=== PATIENT | female | born 1990 | race Caucasian/White ===

== ENCOUNTER 2022-02-17 05:05 | Inpatient (IN) | payer OTHER, SELFPAY ==
[2022-02-17] VITALS (65 sets, daily range): BP systolic 99–204; BP diastolic 39–173; PULSE 55–197; RESP 16–18; TEMP 36.6–38; O2SAT 95–100; BMI 30.8
--- NOTE | 2022-02-17 05:05 | LDADM ---
This patient, Mihaela Rubalcava, was admitted to Labor/Delivery/Recovery 105 on 02/17/22 at 05:05. Plans for labor, pain management and were discussed with patient. Patient/family oriented to hospital policies and general routines including ID bracelet, bed and alarms, visiting hours, pain management, procedures, bathroom and other care routines, personal items, smoking policy, room service/diet and guest tray routines, infant security routines, and visiting hours. Patient/Family are encouraged to report perceived risks to care and to ask questions if they do not understand what they are told or what they should do. See OBIX for further documentation.
[2022-02-17] MEDS: OXYTOCIN 30 UNITS/NS 500 ML 30 UNITS/500 ML BAG IV CONT (06:26)
[2022-02-17] MEDS: LACTATED RINGERS 1,000 ML 125 ML IV CONT ×2 (06:26→10:30)
[2022-02-17 06:27] LABS: Basophils Absolute Auto 0.1 K/mm3 (0.0-0.1); Basophils Percent Auto 0.4 % (0.2-1.2); Eosinophils Absolute Auto 0.1 K/mm3 (0-0.3); Eosinophils Percent Auto 0.7 % (0-4.4); Hematocrit 30.7 % (37.0-47.0); Hemoglobin 10.2 g/dL (12.0-15.0); Immature Granulocyte Absolute 0.12 K/mm3 (0.00-0.031); Immature Granulocyte Percent A 0.8 % (0-0.5); Lymphocytes Absolute Auto 2.16 K/mm3 (0.9-3.2); Lymphocytes Percent Auto 14.3 % (18.3-44.2); Mean Corpuscular HGB Conc 33.2 g/dl (32-36); Mean Corpuscular Hemoglobin 31.9 pg (26-34); Mean Corpuscular Volume 95.9 fl (80-100); Mean Platelet Volume 10.1 fl (7.4-10.4); Monocytes Absolute Auto 0.9 K/mm3 (0.1-0.6); Monocytes Percent Auto 5.9 % (2.6-8.5); Neutrophils Absolute Auto 11.8 K/mm3 (1.3-6.7); Neutrophils Percent Auto 77.9 % (45.5-73.1); Platelet Count Result 281 k/mm3 (150-375); Red Cell Distribution Width 12.9 % (11.5-14.5); White Blood Count 15.1 K/mm3 (4.5-10.0)
--- NOTE | 2022-02-17 10:40 | WPDOBADMIT ---
Obstetrics - Admit Note Admission Note: record reviewed. No pertinent additions to the history and/or any subsequent changes in the physical findings that are not consistent with the expected course of the were found. Elective IOL, SVE /-2 AROM thin brown meconium fluid, anticipate vaginal delivery Additions to the history and/or subsequent changes in the physical findings follow. None.
--- NOTE | 2022-02-17 10:41 | WPDANESEPP ---
Anes - Eval Pre Procedure Procedure: labor epidural Date/Time: 02/17/22 10:41 Preop Diagnosis: labor pain Pre Op Diagnosis: IOL Patient Data Age: 31 Gender: F Height: 1.65 m Weight: 84 kg Last Vital Signs Temp 36.8 C 02/17/22 07:00 Pulse 81 02/17/22 10:31 BP 132/81 02/17/22 10:31 O2 Del Method Room Air 02/17/22 05:26 Allergies Allergy/AdvReac Type Severity Reaction Status Date / Time No Known Allergies Allergy Verified 02/17/22 05:29 Home Medications Medication Instructions Recorded Confirmed Type docusate sodium 100 mg tablet 100 mg PO DAILY PRN Constipation 01/21/22 02/17/22 History famotidine 10 mg tablet 10 mg PO DAILY PRN Heartburn 01/21/22 02/17/22 History prenat.vits,patricia,fjv-gywq-inxgj 1 tablet PO HS 01/21/22 02/17/22 History valacyclovir 500 mg tablet 500 mg PO Q12H 01/21/22 02/17/22 History (Valtrex) cyclobenzaprine 5 mg tablet 5 mg PO DAILY 02/17/22 02/17/22 History Laboratory Tests 02/17/22 02/17/22 02/17/22 05:38 05:38 06:10 WBC 15.1 K/mm3 H K/mm3 (4.5-10.0) RBC 3.20 M/mm3 L M/mm3 (4.2-5.4) Hgb 10.2 g/dL L g/dL (12.0-15.0) Hct 30.7 % L % (37.0-47.0) MCV 95.9 fl fl (80-100) MCH 31.9 pg pg (26-34) MCHC 33.2 g/dl g/dl (32-36) RDW 12.9 % % (11.5-14.5) Plt Count 281 k/mm3 k/mm3 (150-375) MPV 10.1 fl fl (7.4-10.4) Immature Gran % (Auto) 0.8 % H % (0-0.5) Neut % (Auto) 77.9 % H % (45.5-73.1) Lymph % (Auto) 14.3 % L % (18.3-44.2) [place] % (Auto) 5.9 % % (2.6-8.5) Eos % (Auto) 0.7 % % (0-4.4) Baso % (Auto) 0.4 % % (0.2-1.2) Lymph # (Auto) 2.16 K/mm3 K/mm3 (0.9-3.2) [place] # (Auto) 0.9 K/mm3 H K/mm3 (0.1-0.6) Eos # (Auto) 0.1 K/mm3 K/mm3 (0-0.3) Baso # (Auto) 0.1 K/mm3 K/mm3 (0.0-0.1) Abs Immat Gran (auto) 0.12 K/mm3 H K/mm3 (0.00-0.031) Absolute Neuts (auto) 11.8 K/mm3 H K/mm3 (1.3-6.7) Absolute Nucleated RBC 0.0 K/mm3 K/mm3 (0.0-0.012) Nucleated RBC % 0.0 % % (0.0-0.2) RPR Pending Blood Type O Positive Antibody Screen Negative Patient hx anesthesia problems: none Family hx anesthesia problems: none Results Review: All pre-operative results and documents have been reviewed as part of the pre-operative evaluation. [facility] Family History Family History Father Hypertension Mother Pancreatic cancer Social History Social History Smoking status: Never smoker Substance use: never Lack of Transportation: No Lack of Food: Never True Current Housing: I Have Housing Concerned About Future Housing: No Difficulty Paying Gas/Electric Bills: No Difficulty Paying for Meds: No Currently Unemployed: No Education: Bachelor's Degree Difficulty w/ Childcare or Family Care: No Spiritual care concerns: No Comments hx post depression, gerd, hx of heart murmur as child Exam Day of Procedure 02/17/22 10:41
[2022-02-17] MEDS: fentaNYL CITRATE INJ (*CRX) 100 MCG/2 ML VIAL 50 MCG IV PUSH (10:49)
[2022-02-17] MEDS: miSOPROStol 200 MCG TABLET 1000 MCG (13:00)
--- NOTE | 2022-02-17 13:09 | PM.OBPRVD ---
OB - Delivery Note Procedure Delivery date: 02/17/22 Procedure: vaginal delivery Intrapartal Events: Other (thick meconium) Induction method: AROM and Per Pitocin Protocol Delivery monitor: External FHT and External Uterine Route of delivery: Episiotomy description: None Laceration Description: None Specimen: Yes Quantitative Blood Loss (ml): 350 Anesthesia type: Epidural Disposition: Floor [place] Baby Date of : 02/17/22 Weeks of gestation at delivery: 39 Infant gender: Male Weight (pounds): 9 Weight (ounces): 3 presentation: vertex position: Right Occiput Anterior Placenta delivery description: Spontaneous Cord Vessel Description: 3 Vessels and Clamped/Cut score one minute: 8 score five minutes: 9 Narrative: head delivered RAHUL, Anterior shoulder not delivering, compound presentation, and posterior arm delivered without difficulty, the rest of the baby delivered without difficulty, baby to warmer for for evaluation by materials planner/production planner.skin to skin after and in stable condition
[2022-02-17] MEDS: BENZOCAINE 20% AER SPR (*SP) 56 GM CAN 1 SPRAY TOPICAL (15:23)
[2022-02-17] MEDS: WITCH HAZEL 40 PADS 1 PAD TOPICAL (15:23)
--- NOTE | 2022-02-17 15:51 | OBPPTRN ---
Patient transferred to post room #282 via wheelchair. Support person present. Oriented to unit, room, information board, rooming in, admission packet and security measures. Patient verbalizes understanding.
[2022-02-17] MEDS: IBUPROFEN 600 MG TABLET PO (19:50)
[2022-02-17] MEDS: ACETAMINOPHEN 325 MG TABLET 650 MG PO (22:48)
[2022-02-18] VITALS (7 sets, daily range): BP systolic 110–138; BP diastolic 76–81; PULSE 69–84; RESP 14–18; TEMP 36.5–37.3; O2SAT 100
[2022-02-18] MEDS: IBUPROFEN 600 MG TABLET PO ×3 (02:32→22:48)
[2022-02-18 05:11] LABS: Basophils Percent Auto 0.2 % (0.2-1.2); Eosinophils Absolute Auto 0.1 K/mm3 (0-0.3); Eosinophils Percent Auto 0.4 % (0-4.4); Hematocrit 27.4 % (37.0-47.0); Hemoglobin 9.2 g/dL (12.0-15.0); Immature Granulocyte Absolute 0.09 K/mm3 (0.00-0.031); Immature Granulocyte Percent A 0.5 % (0-0.5); Lymphocytes Absolute Auto 2.57 K/mm3 (0.9-3.2); Mean Corpuscular HGB Conc 33.6 g/dl (32-36); Mean Corpuscular Hemoglobin 31.1 pg (26-34); Mean Corpuscular Volume 92.6 fl (80-100); Mean Platelet Volume 10.5 fl (7.4-10.4); Monocytes Absolute Auto 1.1 K/mm3 (0.1-0.6); Monocytes Percent Auto 6.4 % (2.6-8.5); Neutrophils Absolute Auto 13.3 K/mm3 (1.3-6.7); Neutrophils Percent Auto 77.5 % (45.5-73.1); Platelet Count Result 229 k/mm3 (150-375); Red Blood Count 2.96 M/mm3 (4.2-5.4); Red Cell Distribution Width 12.8 % (11.5-14.5); White Blood Count 17.1 K/mm3 (4.5-10.0)
--- NOTE | 2022-02-18 07:54 | PM.OBPNVD ---
OB - PN: Subj Subjective Date/time seen: 02/18/22 07:54 s/p vaginal delivery day 1 OB - PN: Obj Data Labs 02/18/22 04:33 Labs: Laboratory Results - last 24 hr 02/18/22 04:33 WBC 17.1 H RBC 2.96 L Hgb 9.2 L Hct 27.4 L MCV 92.6 MCH 31.1 MCHC 33.6 RDW 12.8 Plt Count 229 MPV 10.5 H Immature Gran % (Auto) 0.5 Neut % (Auto) 77.5 H Lymph % (Auto) 15.0 L [place] % (Auto) 6.4 Eos % (Auto) 0.4 Baso % (Auto) 0.2 Lymph # (Auto) 2.57 [place] # (Auto) 1.1 H Eos # (Auto) 0.1 Baso # (Auto) 0.0 Abs Immat Gran (auto) 0.09 H Absolute Neuts (auto) 13.3 H Absolute Nucleated RBC 0.0 Nucleated RBC % 0.0 OB - PN A/P Plan day: 1 Plan: routine care Time Spent With Patient Time: Total time spent is greater than 50% in coordination of care (as documented) at patient's floor/unit and/or counseling patient: Review of Systems Review of Systems: All systems reviewed & are unremarkable except as noted in HPI and below Exam Const: General: cooperative, healthy appearing and comfortable
[2022-02-18] MEDS: MULTIVIT/MIN/PREN/FOL AC/IRON TABLET 1 TAB PO (10:39)
[2022-02-18] MEDS: POLYSACCHARIDE IRON COMPLEX 150 MG CAPSULE PO ×2 (10:39→22:49)
[2022-02-18 11:53] LABS: Rapid Plasma Reagin Non-Reactive (NonReactive)
[2022-02-18] MEDS: ACETAMINOPHEN 325 MG TABLET 650 MG PO (15:29)
--- NOTE | 2022-02-19 08:01 | PM.OBPNVD ---
OB - PN: Subj Subjective Date/time seen: 02/19/22 08:01 Patient comments: no complaints, pain well controlled and tolerating diet OB - PN: Obj Data Labs 02/18/22 04:33 Labs: Laboratory Results - last 24 hr 02/17/22 05:38 RPR Non-reactive OB - PN A/P Plan day: 2 Plan: routine care and discharge home Time Spent With Patient Time: Total time spent is greater than 50% in coordination of care (as documented) at patient's floor/unit and/or counseling patient: Exam Const: General: comfortable and no acute distress Resp: Effort & Inspection: normal respiratory effort Auscultation: no rales, no rhonchi and no wheezes Cardio: Rate: regular rate Heart sounds: no click, no murmurs and no rubs GI: GI Palp: Yes Soft to palpation and No Tenderness to palpation present (GI) Auscultation: normal bowel sounds Extrem: General: normal to inspection, no pedal edema and no calf tenderness
--- NOTE | 2022-02-19 08:02 | PM.OBDSVD ---
DS: Admitting Diagnosis Discharge Date 02/19/22 Admitting Diagnosis term OB - DS: Summary OB Procedures : None OB Procedures Intrapartum: Spontaneous Vag Delivery OB Procedures: : None Time Spent with Patient Time attestation: Total time spent providing and/or coordinating discharge services: DS: Data Data Completed and Pending Pending studies at discharge: Pending at discharge 02/17/22 12:54 Surgical [PTH] Routine Labs on day of discharge: Labs from last 24 hours 02/17/22 05:38 RPR Non-reactive Discharge Plan Discharge Discharging Clinician: Larisa Kovacs Patient Disposition: Home, Self-Care Activity: pelvic rest Diet: regular Patient Instructions: Antibiotic Form Stand Alone Forms: General Discharge Information Follow-up/Referrals: Larisa Kovacs MD [Physician] - Discharge Medications: Continued famotidine 10 mg Tablet 10 mg PO DAILY PRN (Reason: Heartburn) valacyclovir [Valtrex] 500 mg Tablet 500 mg PO Q12H docusate sodium 100 mg Tablet 100 mg PO DAILY PRN (Reason: Constipation) #2 Tablet 1 tablet PO HS cyclobenzaprine 5 mg tablet 5 mg PO DAILY Date of admission: 02/17/22 05:05 Primary Care Provider: Angelica,Pauly Espinal Admitting Provider: Larisa Kovacs Attending physician on admission: Larisa Kovacs Condition: Stable
[2022-02-19 08:55] VITALS: BP 132/70; PULSE 78; RESP 18; TEMP 36.7; O2SAT 100
[2022-02-19 10:30] VITALS: PULSE 78; RESP 18; O2SAT 100
[2022-02-19] MEDS: IBUPROFEN 600 MG TABLET PO (11:30)
[2022-02-19] MEDS: MEASLES,MUMPS,RUBELLA VACCINE 0.5 ML VIAL SUB-Q (13:10)
[2022-02-19] MEDS: ACETAMINOPHEN 325 MG TABLET 650 MG PO (13:13)
[2022-02-20 11:25] VITALS: BP 121/85; PULSE 78; RESP 16; TEMP 36.6; O2SAT 99
== END 2022-02-19 14:30 | disposition home or self-care (01) | DRG 806 ==
LOC: ANHLDR 05:08 → ANHOB2 15:59
PROVIDERS: Advanced Practice Midwife; Admitting Provider Obstetrics & Gynecology; PCP Family Medicine; Visit Provider Obstetrics & Gynecology
DX: O77.0 Labor and delivery complicated by meconium in amniotic fluid (principal); O98.32 Other infections with a predominantly sexual mode of transmission complicating childbirth; Z37.0 Single live birth; Z3A.39 39 weeks gestation of pregnancy; A60.09 Herpesviral infection of other urogenital tract; O32.6XX0 Maternal care for compound presentation, not applicable or unspecified; O66.0 Obstructed labor due to shoulder dystocia
CPT/HCPCS: 36415; 85025; 86592; 86850; 86900; 86901; 88307; 90710; A9270; J2590; J2795; J3010; J7120

== ENCOUNTER 2022-03-06 10:06 | Emergency (ER) | payer OTHER, SELFPAY ==
[2022-03-06 10:14] VITALS: BP 151/79; PULSE 86; RESP 18; TEMP 36.5; O2SAT 100
--- NOTE | 2022-03-06 10:18 | ED.URI ---
HPI - URI/Sore Throat General Chief Complaint: Upper Respiratory Infection Stated Complaint: sorethroat Time Seen by Provider: 03/06/22 10:18 Source: patient Mode of arrival: ambulatory Limitations: no limitations History of Present Illness HPI Narrative: 31-year-old female presents with complaint of sore throat that started yesterday. No other symptoms. Reports that she has a 2-week-old and a 3-year-old in daycare. Wanted to be proactive and have herself tested for strep. Afebrile. Denies nausea vomiting diarrhea. No cough or congestion. All Systems reviewed and negative except as noted above. Related Data Home Medications Medication Instructions Recorded Confirmed famotidine 10 mg tablet 10 mg PO DAILY PRN Heartburn 01/21/22 03/06/22 valacyclovir 500 mg tablet 500 mg PO Q12H 01/21/22 03/06/22 (Valtrex) vits no.126-ferrous fum 1 tablet PO DAILY 03/06/22 03/06/22 28 mg iron-folic acid 800 mcg tablet (Classic ) Allergies Allergy/AdvReac Type Severity Reaction Status Date / Time No Known Allergies Allergy Verified 03/06/22 10:10 Review of Systems Review of Systems: CONSTITUTIONAL: Denies fever, chills, or sweats. EYES: Denies visual changes, redness, or discharge. ENT: Denies rhinorrhea, congestion. Reports sore throat. Denies otalgia. CARDIOVASCULAR: Denies chest pain, palpitations, or edema. RESPIRATORY: Denies cough or dyspnea. GASTROINTESTINAL: Denies abdominal pain, nausea, vomiting, or diarrhea. GENITOURINARY: Denies dysuria or hematuria. SKIN: Denies rash or itching. MUSCULOSKELETAL: Denies back pain, joint pain, or myalgia. NEUROLOGIC: Denies headache, numbness, or weakness. PSYCHIATRIC: Denies anxiety or depression. All other systems reviewed are negative, except as documented in HPI. [facility] Family History Family History Father Hypertension Mother Pancreatic cancer Social History Social History Smoking status: Never smoker Substance use: never Lack of Transportation: No Lack of Food: Never True Current Housing: I Have Housing Concerned About Future Housing: No Difficulty Paying Gas/Electric Bills: No Difficulty Paying for Meds: No Currently Unemployed: No Education: Bachelor's Degree Difficulty w/ Childcare or Family Care: No Spiritual care concerns: No Comments At time of signature, agree with nursing past medical, surgical, social and family history. There is no relevant family history pertinent to the presenting complaint. Exam Narrative: GENERAL: This is a well-nourished, well-developed patient, in no apparent distress. HEAD: normocephalic, atraumatic. EYES: PERRL. Sclera clear/white. Vision is grossly intact. EARS: External ears normal, auditory canals clear and without drainage, TMs normal without perforation. Hearing grossly intact. NOSE: External nose normal with no obvious nasal discharge, nares without redness, no rhinorrhea. THROAT: Mucous membranes moist, mild erythema to posterior pharynx. No swelling. No tonsillar exudates. NECK: Neck supple, non-tender without lymphadenopathy, masses or thyromegaly. CARDIOVASCULAR: Regular rate and rhythm without murmurs, gallops, or rubs. RESPIRATORY: Clear to auscultation. Breath sounds equal bilaterally. No wheezes, rales, or rhonchi. SKIN: warm, Dry, intact with no suspicious lesions or rash, good texture and turgor. NEURO: awake, alert, and oriented to person, place and time. There were no obvious focal neurologic abnormalities. EXTREMITIES: No joint tenderness, effusion, or edema noted. Course Course Level of Care: Express Care Visit Vital Signs Vital signs: Vital Signs Temperature 36.5 C 03/06/22 10:14 Pulse Rate 86 03/06/22 10:14 Respiratory Rate 18 03/06/22 10:14 Blood Pressure 151/79 H 03/06/22 10:14 Pulse Oximetry 100 03/06/22 10:1
== END 2022-03-06 10:28 | disposition home or self-care (01) ==
PROVIDERS: Emergency Provider Nurse Practitioner Family; PCP Family Medicine
DX: J02.0 Streptococcal pharyngitis (principal)
CPT/HCPCS: 87081; 87147; 99212; G0463